=== PATIENT | male | born 1955 | race Caucasian/White ===

== ENCOUNTER 2024-03-20 08:43 | Day surgery (SDC) | payer MEDICARE ==
[2024-03-20] MEDS ORDERED: Dexamethasone 4 MG/ML SDV IV ONE (08:44)
[2024-03-20] MEDS ORDERED: Sodium Chloride 0.9% 10 ML Syringe IV ONE (08:44)
[2024-03-20] MEDS ORDERED: Midazolam 1 MG/ML 2 ML SDV IV ONE (08:44)
[2024-03-20] MEDS ORDERED: Sodium Chloride 0.9% 10 ML Syringe FLUSH PRN (09:00)
[2024-03-20] MEDS ORDERED: Acetaminophen 325 MG Tab PO PRN (09:00)
[2024-03-20] MEDS ORDERED: Acetaminophen/Codeine 300-30 MG Tab PO PRN (09:00)
[2024-03-20] MEDS ORDERED: Ondansetron 4 MG/2 ML SDV IVPUSH PRN (09:00)
[2024-03-20] MEDS: Proparacaine 0.5% Ophth Soln 15 ML Bottle EYELF ONE ×2 (09:12→10:11)
[2024-03-20] MEDS: Povidone-Iodine 5% Sterile Ophth Soln 30 ML Bottle EYELF ONE ×2 (09:13→10:11)
[2024-03-20] MEDS: Moxifloxacin 0.5% Ophth Soln 3 ML Bottle EYELF ONE (09:15)
[2024-03-20] MEDS: Tropicamide 1% Ophth Soln 15 ML Bottle EYELF ONE (09:15)
[2024-03-20] MEDS: Phenylephrine 10% Ophth Soln 5 ML Bot EYELF ONE (09:16)
[2024-03-20] MEDS: Timolol Maleate 0.5% Ophth Soln 5 ML Bottle EYELF ONE (09:17)
[2024-03-20] MEDS: Cataract Ophth Solution EYELF ONE (09:18)
[2024-03-20] MEDS: Lidocaine 1% 30 ML SDV ONE (10:11)
[2024-03-20] MEDS: VANCOmycin 500 MG SDV EYELF ONE (10:11)
[2024-03-20] MEDS: Dexamethasone/Neomycin/Polymyxin B Ophth Oint 3.5 GM Tube EYELF ONE (10:26)
[2024-03-20] MEDS: Apraclonidine 0.5% Ophth Soln 5 ML Bot EYELF ONE (10:26)
[2024-03-20] MEDS: Diclofenac Sodium 0.1% Ophth Soln 5 ML Bottle EYELF ONE (10:26)
== END 2024-03-20 11:16 | disposition home or self-care (01) ==
LOC: DL.SDS 08:43
PROVIDERS: ATTEND Ophthalmology
DX: H25.812 Combined forms of age-related cataract, left eye (principal); I10 Essential (primary) hypertension; F17.210 Nicotine dependence, cigarettes, uncomplicated; Z79.899 Other long term (current) drug therapy
CPT/HCPCS: 66984; A9270; J3370; J1100; J2250; J3490

== ENCOUNTER 2024-04-03 08:49 | Day surgery (SDC) | payer MEDICARE ==
[2024-04-03] MEDS ORDERED: Acetaminophen/Codeine 300-30 MG Tab PO PRN (09:00)
[2024-04-03] MEDS ORDERED: Ondansetron 4 MG/2 ML SDV IVPUSH PRN (09:00)
[2024-04-03] MEDS ORDERED: Acetaminophen 325 MG Tab PO PRN (09:00)
[2024-04-03] MEDS ORDERED: Sodium Chloride 0.9% 10 ML Syringe FLUSH PRN (09:00)
[2024-04-03] MEDS: Proparacaine 0.5% Ophth Soln 15 ML Bottle EYERT ONE ×2 (09:16→09:49)
[2024-04-03] MEDS: Povidone-Iodine 5% Sterile Ophth Soln 30 ML Bottle EYERT ONE ×2 (09:17→09:50)
[2024-04-03] MEDS: Moxifloxacin 0.5% Ophth Soln 3 ML Bottle EYERT ONE (09:18)
[2024-04-03] MEDS: Tropicamide 1% Ophth Soln 15 ML Bottle EYERT ONE (09:20)
[2024-04-03] MEDS: Phenylephrine 10% Ophth Soln 5 ML Bot EYERT ONE (09:21)
[2024-04-03] MEDS: Timolol Maleate 0.5% Ophth Soln 5 ML Bottle EYERT ONE (09:22)
[2024-04-03] MEDS: Cataract Ophth Solution EYERT ONE (09:23)
[2024-04-03] MEDS: Apraclonidine 0.5% Ophth Soln 5 ML Bot EYERT ONE (09:54)
[2024-04-03] MEDS: Diclofenac Sodium 0.1% Ophth Soln 5 ML Bottle EYERT ONE (09:54)
[2024-04-03] MEDS: Dexamethasone/Neomycin/Polymyxin B Ophth Oint 3.5 GM Tube EYERT ONE (09:55)
[2024-04-03] MEDS: Lidocaine 1% 30 ML SDV ONE (09:55)
[2024-04-03] MEDS: VANCOmycin 500 MG SDV EYERT ONE (09:56)
== END 2024-04-03 10:33 | disposition home or self-care (01) ==
LOC: DL.SDS 08:49
PROVIDERS: ATTEND Ophthalmology
DX: H25.811 Combined forms of age-related cataract, right eye (principal); I10 Essential (primary) hypertension; F17.210 Nicotine dependence, cigarettes, uncomplicated; Z79.899 Other long term (current) drug therapy
CPT/HCPCS: 66984; A9270; J3370; J3490